=== PATIENT | female | born 1965 | race Caucasian/White ===

== ENCOUNTER 2024-03-27 14:12 | Outpatient (CLI) | payer BC | END 2024-03-27 23:59 | disposition home or self-care (01) | LOC: RAD 14:12 | PROVIDERS: ATTEND Nurse Practitioner Family | DX: J34.89 Other specified disorders of nose and nasal sinuses (principal); Z85.3 Personal history of malignant neoplasm of breast; Z85.820 Personal history of malignant melanoma of skin | CPT/HCPCS: 70486 ==